=== PATIENT | female | born 1980 | race Caucasian/White ===

== ENCOUNTER 2018-08-31 09:51 | Emergency (ER) | payer OTHER ==
[~2018-08-31] VITALS: Ht 175.3 cm; Wt 72.6 kg
[2018-08-31] MEDS ORDERED: MELOXICAM7.5 MG PO (11:05)
[2018-08-31 11:22] VITALS: BP 136/83
== END 2018-08-31 11:23 | disposition home or self-care (01) ==
LOC: M.ERS 09:51
DX: S20.212A Contusion of left front wall of thorax, initial encounter (principal); R91.1 Solitary pulmonary nodule; Z98.890 Other specified postprocedural states; W00.0XXA Fall on same level due to ice and snow, initial encounter; Y92.89 Other specified places as the place of occurrence of the external cause; Y93.89 Activity, other specified; Y99.8 Other external cause status